=== PATIENT | male | born 1990 | race Caucasian/White ===

== ENCOUNTER 2017-06-12 21:20 | Inpatient (IN) | payer OTHER ==
[~2017-06-12] VITALS: Ht 177.8 cm; Wt 58.1 kg
[2017-06-12 22:00] VITALS: BP 110/66
--- NOTE | 2017-06-12 22:00 | NUR ---
INTAKE ASSESSMENT PATIENT NOTED AMBULATING WITH STEADY GAIT . PATIENT ABLE TO ANSWER QUESTIONS APPROPRIATELY. VS BP- 110/66 P-91 T-98.5 R-18 SpO2 97% IN RA. PA- 5/10 FOR HEADACHE. PATIENT NOTED DOZES OFF AT TIMES. PATIENT STATES HE'S TIRED. PATIENT IS HERE FOR HEROIN IV AND METH IV. PATIENT STATES HE LAST USE HEROIN TODAY 1/2 GRAM AT 2 OR 3 PM AND METH WAS 2 DAYS AGO. NO SEIZURE HISTORY. NO KNOWN ALLERGIES. WILL CONTINUE ADMISSION ON 3RD FLOOR.
--- NOTE | 2017-06-12 22:36 | NUR ---
ADMISSION NOTE PATIENT IS A 26 YEAR OLD MALE WHO PRESENTS TO [facility] FOR SUPERVISED WITHDRAWAL FROM OPIATE/METH DEPENDENCE. PATIENT STATES HE'S HERE "TO GET SOBER AND TO GET HIS LIFE BACK". HEIGHT IS 5'10 AND WEIGHT IS 128 LBS. PATIENT REQUESTED TO BE FULL CODE AND ON REGULAR DIET. BODY CHECK DONE . PATIENT NOTED WITH OPEN SCABS ON RIGHT ARM, BACK AND BOTH FEET. PICTURE TAKEN. LUNGS CLEAR AND ABDOMEN SOFT AND NON DISTENDED. BOWEL SOUNDS ACTIVE ON LOWER QUADRANTS. PATIENT STATES HIS LAST BOWEL MOVEMENT WAS 2 DAYS AGO. NO ABDOMINAL PAIN. PATIENT REPORTS PMH OF APPENDECTOMY, KIDNEY STONES, ANXIETY , DEPRESSION AND OVERDOSE ON HEROIN 3 WEEKS AGO , HE WAS HOSPITALIZED. HE STATES HE DOES NOT TAKE ANY HOME MEDICATION. PATIENT DOES NOT HAVE PCP. PATIENT'S DRUG OF CHOICE ARE: HEROIN IV-STARTED USING AT AGE 18. PATIENT INJECTS 1/2 TO 1 GRAM DAILY SINCE JANUARY 2017. LAST USE WAS 1/2 GRAM ON 06/12/17 METHAMPHETAMINE-STARTED USING AT AGE 18. PATIENT INJECTS 1/2 TO 1 GRAM DAILY SINCE JANUARY 2017. LAST USE WAS 1 GRAM , 2 DAYS AGO 06/10/17. TREATMENT HISTORY FORMERLY [facility], 1928–1983 [facility]- SEPTEMBER 2016- DECEMBER 2016 PATIENT STATES HE WAS IN THE HOSPITAL 3 WEEKS AGO DUE TO OVERDOSE OF HEROIN. HE WAS ALSO [facility] FOR A DAY BEFORE COMING HERE. 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 HIS MOM AND GF IS HIS SUPPORT SYSTEM. PATIENT APPEARS ANXIOUS. COWS 5 AND CIWA 4. PATIENT WAS PLACED ON FALL PRECAUTION. SAFETY MEASURES IN PLACE. CALL LIGHT IN REACH. WILL CONTINUE TO MONITOR.
[2017-06-12] MEDS ORDERED: MAGNESIUM HYDROXIDE 30 ML LIQUID UDC PO PRN (23:00)
[2017-06-12] MEDS ORDERED: ONDANSETRON 4 MG/2 ML VIAL IM PRN (23:00)
[2017-06-12] MEDS ORDERED: HYDROXYZINE PAMOATE 25 MG CAPSULE PO PRN (23:00)
[2017-06-12] MEDS ORDERED: MIRALAX 17 GM POWD.PACK PO PRN (23:00)
[2017-06-12] MEDS ORDERED: MAG HYDROX/AL HYDROX/SIMETH 30 ML LIQUID UDC PO PRN (23:00)
[2017-06-12] MEDS ORDERED: ONDANSETRON ODT 4 MG TAB.RAPDIS SL PRN (23:00)
[2017-06-12] MEDS ORDERED: LOPERAMIDE HCL 2 MG CAPSULE PO PRN ×2 (23:00)
[2017-06-12] MEDS ORDERED: ACETAMINOPHEN 325 MG TABLET PO PRN (23:00)
[2017-06-12] MEDS ORDERED: CLONIDINE HCL 0.1 MG TABLET PO PRN (23:00)
[2017-06-12] MEDS ORDERED: BUPRENORPHINE HCL 2 MG TAB.SUBL SL PRN (23:00)
[2017-06-12] MEDS ORDERED: LORAZEPAM 1 MG TABLET PO PRN (23:00)
[2017-06-12] MEDS ORDERED: IBUPROFEN 600 MG TABLET PO PRN (23:00)
[2017-06-12] MEDS: diphenhydrAMINE 50 MG CAPSULE PO PRN (23:13)
--- NOTE | 2017-06-12 23:13 | NUR ---
PRN BENADRYL AND TYLENOL ADMINISTRATION PATIENT C/O HEADACHE 02/03 AND REQUESTS FOR SLEEP AID. PRN BENADRYL AND TYLENOL GIVEN. WILL MONITOR FOR EFFECTIVENESS
[2017-06-12] MEDS ORDERED: ACETAMINOPHEN 325 MG TABLET ONE (23:25)
[2017-06-12] MEDS ORDERED: diphenhydrAMINE 50 MG CAPSULE ONE (23:25)
[2017-06-12 23:48] LABS: *AMPHETAMINE, URINE NEGATIVE (NEGATIVE); *BARBITURATE, URINE NEGATIVE (NEGATIVE); *CANNABINOID, URINE NEGATIVE (NEGATIVE); *COCCAINE, URINE NEGATIVE (NEGATIVE); *OPIATE, URINE POSITIVE (NEGATIVE); *PHENCYCLIDINE SCREEN,URINE NEGATIVE (NEGATIVE)
[2017-06-13] VITALS: BP 90/50
--- NOTE | 2017-06-13 00:13 | NUR ---
PRN BENADRYL AND TYLENOL RE-ASSESSMENT PATIENT IN BED WITH HIS EYE CLOSED. NO FACIAL GRIMACING. RESPIRATION EVEN AND UNLABORED. SAFETY MEASURES IN PLACE. CALL LIGHT IN REACH. WILL CONTINUE TO MONITOR
[2017-06-13 04:00] VITALS: BP 98/59
[2017-06-13 06:53] LABS: ALANINE AMINOTRANSFERASE 20 U/L (16-63); ALKALINE PHOSPHATASE 68 U/L (50-136); ASPARTATE AMINOTRANSFERASE 26 U/L (15-37); BILIRUBIN,TOTAL 1.1 mg/dL (0.2-1.0); CARBON DIOXIDE 31 mmol/L (21-32); CHLORIDE 102 mmol/L (98-107); CREATININE 0.9 mg/dL (0.6-1.3); ETHANOL < 3 MG/DL (0-0); GLUCOSE 80 mg/dL (74-106); MAGNESIUM 1.9 mg/dL (1.8-2.4); POTASSIUM 4.3 mmol/L (3.5-5.1); TOTAL PROTEIN, SERUM 7.5 g/dL (6.4-8.2); UREA NITROGEN, BLOOD 12 mg/dL (7-18)
[2017-06-13 07:05] LABS: BASOPHILS % (AUTO) 0.6 % (0.0-2.0); EOSINOPHILS # (AUTO) 0.3 K/uL (0.0-0.7); HEMATOCRIT 41.6 % (40-50); HEMOGLOBIN 13.8 G/DL (14.0-18.0); LYMPHOCYTES # (AUTO) 1.4 K/UL (0.8-4.8); MEAN CORPUSCULAR HEMOGLOBIN 30.3 UUG (27.0-31.0); MEAN CORPUSCULAR HGB CONC 33 g/dL (32.0-37.0); MEAN CORPUSCULAR VOLUME 91.3 FL (82.0-92.0); MONOCYTES # (AUTO) 0.4 K/UL (0.1-1.30); MONOCYTES % (AUTO) 8.4 % (0.0-11.0); NEUTROPHILS # (AUTO) 2.3 K/UL (1.8-8.9); PLATELET COUNT (AUTO) 151 K/UL (150-450); RED BLOOD CELL COUNT(AUTO) 4.55 MIL/UL (4.7-6.1); WHITE BLOOD COUNT (AUTO) 4.4 K/UL (4.0-11.2)
--- NOTE | 2017-06-13 07:05 | NUR ---
Start of Shift Report from night nurse: pt is a 26 y/o male newly admitted here last night for Opiate dependence r/t Heroin 0.5-1g daily & methamphetamine 0.5-1g daily both IV since 01/2017; PRN Subutex ordered and no taper started at this time. Pt is a full code, regular diet, NKA, fall precautions ordered. Hhx: anxiety, depression, renal stones, appendectomy and OD on heroin, pt in hospital 3 weeks so MRSA done and in processes. V/S stable. Skin not intact with multiple scabs on back bilateral feet and right arm with pictures taken in the chart. PRN Benadryl and Tylenol. COWS 2 CIWA 2. Pt is asleep in room. Will cont. to monitor the pt.
--- NOTE | 2017-06-13 07:20 | NUR ---
END OF SHIFT NOTE PATIENT HAD UNEVENTFUL NIGHT. PATIENT IS A 26 YEAR OLD MALE ADMITTED FOR OPIATE AND METH DEPENDENCE.PATIENT WAS GIVEN PRN BENADRYL AND TYLENOL. PATIENT COMPLIANT WITH MEDICATION AND TREATMENT PLAN. ON FALL PRECAUTION. SAFETY MEASURES IN PLACE. CALL LIGHT IN REACH. WILL CONTINUE TO MONITOR . PATIENT SLEPT 6 HOURS. FLUID INTAKE 1,000 ML. VOIDED X 1. NO BM. LAST COWS 2 AND CIWA 2.
[2017-06-13 08:00] VITALS: BP 93/62
[2017-06-13] MEDS ORDERED: TUBERCULIN,PURIF.PROT.DERIV. 5 TU/0.1 ML TEST ID ONE (09:00)
[2017-06-13] MEDS ORDERED: BUPRENORPHINE HCL 2 MG TAB.SUBL SL SCH (09:00)
[2017-06-13 12:00] VITALS: BP 117/69
[2017-06-13] MEDS: MULTIVITAMINS,THERAPEUTIC TABLET PO SCH (13:43)
[2017-06-13] MEDS: BUPRENORPHINE HCL 2 MG TAB.SUBL SL SCH ×3 (13:44→20:39)
[2017-06-13] MEDS: METHOCARBAMOL 750 MG TABLET PO PRN (13:45)
--- NOTE | 2017-06-13 13:45 | NUR ---
PRN Medication Administration Pt is in room with anxiety and muscle tension with discomfort generalized; PRN Robaxin 750mg and Vistaril 25mg given as ordered. Will reassess in 1H.
--- NOTE | 2017-06-13 14:45 | NUR ---
Reassessment Pt is in room taking a nap, no non-verbal s/sx of anxiety or muscle tension noted. Will cont. to monitor the pt.
[2017-06-13 16:00] VITALS: BP 101/62
--- NOTE | 2017-06-13 19:19 | NUR ---
Start of Shift Report from night nurse: pt is a 26 y/o male newly admitted here last night for Opiate dependence r/t Heroin 0.5-1g daily & methamphetamine 0.5-1g daily both IV since 01/2017; PRN Subutex ordered and no taper started at this time. Pt is a full code, regular diet, NKA, fall precautions ordered. Hhx: anxiety, depression, renal stones, appendectomy and OD on heroin, pt in hospital 3 weeks so MRSA done and in processes. V/S stable. Skin not intact with multiple scabs on back bilateral feet and right arm with pictures taken in the chart and PPD test done today on Left FA. Pt missed the 0900am dose of Subutex per Dr. Jules. PRN Robaxin 750mg and Vistaril 25mg given today. Pt excused from the group therapy during my shift. No abnormal labs during my shift. Last COWS 10 CIWA 7.
[2017-06-13 20:00] VITALS: BP 97/61
--- NOTE | 2017-06-13 20:00 | NUR ---
START OF SHIFT NOTE RECEIVED REPORT FROM DAY SHIFT NURSE. PATIENT IS A 26 YEAR OLD MALE ADMITTED FOR OPIATE/METH DEPENDENCE. PATIENT WAS PLACED ON 4 DAY SUBUTEX TAPER, STARTED TODAY. NO SEIZURE HISTORY. TB TEST DONE TODAY. PATIENT WAS GIVEN PRN VISTARIL AND ROBAXIN. LAST COWS 10. PATIENT IN HIS ROOM, RESTING. PATIENT REPORTS ANXIETY, SWEATING, CHILLS , ABDOMINAL CRAMPING , STUFFY NOSE, NAUSEATED , VOMITING X 1, SLIGHT TREMORS AND BACK PAIN 6/10. ON FALL/SEIZURE PRECAUTION.SAFETY MEASURES IN PLACE. CALL LIGHT IN REACH. WILL CONTINUE TO MONITOR.
[2017-06-13] MEDS: DICYCLOMINE HCL 20 MG TABLET PO PRN (20:38)
--- NOTE | 2017-06-13 20:38 | NUR ---
PRN BENTYL,MOTRIN AND ZOFRAN ADMINISTRATION PATIENT C/O ABDOMINAL CRAMPING, NAUSEA/VOMITING X 1 AND BACK PAIN 6/10. WILL MONITOR FOR EFFECTIVENESS
--- NOTE | 2017-06-13 21:38 | NUR ---
NM AMEENA WILSON AND GRISEL RE-ASSESSMENT PATIENT STATES HE FEELS MUCH BETTER. EMESIS AND NAUSEA CEASED. NO PAIN . WILL CONTINUE TO MONITOR.
[2017-06-14] VITALS: BP 93/52
[2017-06-14 04:00] VITALS: BP 90/56
--- NOTE | 2017-06-14 07:09 | NUR ---
END OF SHIFT NOTE PATIENT IS A 26 YEAR OLD MALE ADMITTED FOR OPIATE/METH DEPENDENCE. PATIENT WAS PLACED ON 4 DAY SUBUTEX TAPER, TOLERATED WELL. NO ADVERSE REACTION. PATIENT IN HIS ROOM MOST OF THE SHIFT. GOES OUT TO SMOKE AND GET SNACKS. PATIENT REPORTED ANXIETY, SWEATING, CHILLS , ABDOMINAL CRAMPING , STUFFY NOSE NAUSEATED , VOMITING X 1, SLIGHT TREMORS AND BACK PAIN 6/10. PATIENT WAS GIVEN PRN BENTYL, MOTRIN AND ZOFRAN AT 2037. PATIENT REMAIN FREE OF INJURY. ON FALL/SEIZURE PRECAUTION.SAFETY MEASURES IN PLACE. CALL LIGHT IN REACH. WILL CONTINUE TO MONITOR. SLEPT 7 HOURS. FLUID INTAKE 1,180 ML. VOIDED X 3 . NO BM. LAST COWS 2.
[2017-06-14 08:00] VITALS: BP 92/66
--- NOTE | 2017-06-14 08:10 | NUR ---
START O9F SHIFT: RECEIVED PT A/O X 4 LAYING IN BED. HE PRESENTS WITH ANXIOUS MOOD AND RESTRICTED AFFECT. HE STATES HIS APPETITE IS POOR AND C/O STOMACH CRAMPS,BODY ACHES,ANXIETY ,CHILLS ,SWEATS AND IRRITABILITY. COWS 8. SUBUTEX TAPER IN PROGRESS TO MANAGE S/S OF W/D. PRN BENTYL GIVEN TO MANAGE STOMACH CRAMPS. ENCOURAGED HIM TO INCREASE FLUID INTAKE TO PROMOTE WELLNESS. WILL CONTINUE TO MONITOR AND MANAGE S/S OF W/D.
[2017-06-14] MEDS: MULTIVITAMINS,THERAPEUTIC TABLET PO SCH (08:47)
[2017-06-14] MEDS: DICYCLOMINE HCL 20 MG TABLET PO PRN (08:47)
[2017-06-14] MEDS ORDERED: BUPRENORPHINE HCL 2 MG TAB.SUBL SL SCH ×3 (09:00→13:00)
[2017-06-14 12:00] VITALS: BP 115/61
[2017-06-14] MEDS: GABAPENTIN 300 MG CAPSULE PO SCH ×2 (14:10→20:41)
[2017-06-14] MEDS: BACLOFEN 10 MG TABLET PO SCH ×2 (14:10→20:42)
[2017-06-14] MEDS: CLONIDINE HCL 0.1 MG TABLET PO SCH ×2 (14:11→20:43)
[2017-06-14] MEDS: DICYCLOMINE HCL 20 MG TABLET PO SCH ×2 (14:12→20:42)
[2017-06-14] MEDS: BUPRENORPHINE HCL 2 MG TAB.SUBL SL SCH ×2 (14:12→20:43)
[2017-06-14 16:00] VITALS: BP 90/62
--- NOTE | 2017-06-14 18:47 | NUR ---
END OF SHIFT: PT CONTINUES ON SUBUTEX TAPER. HE C/O BODY ACHES,SWEATS ANXIETY AND CHILLS TODAY. LAST COWS 5. HE SHOWERED TODAY BUT DID NOT FEEL WELL ENOUGH TO ATTEND GROUPS. HE WAS COM[PLIANT WITH INCREASED FLUIDS. WILL PASS SHIFT REPORT TO ONCOMING NIGHT NURSE.
[2017-06-14 20:00] VITALS: BP 115/67
--- NOTE | 2017-06-14 20:00 | NUR ---
START OF SHIFT NOTE RECEIVED REPORT FROM DAY SHIFT NURSE. CONTINUE ON 4 DAY SUBUTEX TAPER FOR OPIATE DEPENDENCE, TOLERATED WELL. NO ADVERSE REACTION. PATIENT HAS NO SEIZURE HISTORY. PATIENT DID NOT REQUIRE ANY PRN MEDICATION. LAST COWS 5. PATIENT IN THE ROOM, WATCHING TV AT THIS TIME. PATIENT REPORTS ANXIETY, SWEATING , NO N/V , YAWNING, TREMORS AND BACK PAIN 5/10. PATIENT DID NOT ATTEND GROUPS BUT WILL TRY TOMORROW. ON FALL/SEIZURE PRECAUTION. SAFETY MEASURES IN PLACE. CALL LIGHT IN REACH. WILL CONTINUE TO MONITOR.
[2017-06-14] MEDS: METHOCARBAMOL 750 MG TABLET PO PRN (20:43)
--- NOTE | 2017-06-14 20:43 | NUR ---
PRN ROBAXIN ADMINISTRATION PATIENT C/O BACK PAIN 02/03 . PRN ROBAXIN GIVEN. WILL MONITOR FOR EFFECTIVENESS
--- NOTE | 2017-06-14 21:43 | NUR ---
PRN ROBAXIN RE-ASSESSMENT PATIENT STATES ROBAXIN HELPFUL. NO PAIN AT THIS TIME. WILL CONTINUE TO MONITOR
--- NOTE | 2017-06-15 | NUR ---
COWS/VS PATIENT REFUSED VS. COWS UNABLE TO ASSESS. RESPIRATION EVEN AND UNLABORED. RR 14. SAFETY MEASURES IN PLACE. CALL LIGHT IN REACH. WILL CONTINUE TO MONITOR.
--- NOTE | 2017-06-15 04:00 | NUR ---
COWS/VS PATIENT REFUSED VS. COWS UNABLE TO ASSESS. RESPIRATION EVEN AND UNLABORED. RR 15. SAFETY MEASURES IN PLACE. CALL LIGHT IN REACH. WILL CONTINUE TO MONITOR.
[2017-06-15 04:06] LABS: HEPATITIS B SURFACE AG Negative (Negative)
--- NOTE | 2017-06-15 06:59 | NUR ---
END OF SHIFT NOTE PATIENT CONTINUE ON 4 DAY SUBUTEX TAPER FOR OPIATE DEPENDENCE, TOLERATED WELL. NO ADVERSE REACTION. PATIENT HAS NO SEIZURE HISTORY.. PATIENT REPORTED ANXIETY, SWEATING , NO N/V , YAWNING, TREMORS AND BACK PAIN 5/10 BEGINNING OF SHIFT. PRN ROBAXIN GIVEN. PATIENT COMPLIANT WITH MEDICATION , PATIENT DID NOT ATTEND GROUPS BUT WILL TRY TODAY. ON FALL/SEIZURE PRECAUTION. SAFETY MEASURES IN PLACE. CALL LIGHT IN REACH. WILL CONTINUE TO MONITOR. SLEPT 7 HOURS. FLUID INTAKE 1,092 ML. VOIDED X 3.NO BM. LAST COWS 6 .
--- NOTE | 2017-06-15 07:20 | NUR ---
Start of Shift Merchandiser Seasonal received report on 26 year old male admitted on 06/12/17 for Heroin and Methamphetamine detoxification. Pt reports NKA, full code and regular diet. Reports a PMH of anxiety, depression, appendectomy and a previous over-dose on Heroin. Pt currently on a 4 day Subutex taper, tolerating well. Last recorded COWS of 6 at 1999, per report. Merchandiser Seasonal encounters pt resting in bed with eyes closed. Respirations even and unlabored with rise and fall of chest noted. Bed in low position with wheels locked, side rails up x2 and call light within reach. Will continue to monitor, support and encourage according to plan of care.
[2017-06-15 08:10] VITALS: BP 111/52
[2017-06-15] MEDS: CLONIDINE HCL 0.1 MG TABLET PO SCH ×3 (08:52→21:18)
[2017-06-15] MEDS: DICYCLOMINE HCL 20 MG TABLET PO SCH ×3 (08:52→21:18)
[2017-06-15] MEDS: BUPRENORPHINE HCL 2 MG TAB.SUBL SL SCH ×3 (08:53→21:18)
[2017-06-15] MEDS: MULTIVITAMINS,THERAPEUTIC TABLET PO SCH (08:53)
[2017-06-15] MEDS: BACLOFEN 10 MG TABLET PO SCH ×3 (08:53→21:18)
[2017-06-15] MEDS: GABAPENTIN 300 MG CAPSULE PO SCH ×3 (08:53→21:18)
[2017-06-15] MEDS ORDERED: BUPRENORPHINE HCL 2 MG TAB.SUBL SL SCH ×2 (09:00→15:00)
--- NOTE | 2017-06-15 10:30 | NUR ---
Endorse Care Surveillance System Monitor endorsed care to ZHANE Shea
--- NOTE | 2017-06-15 10:30 | NUR ---
Endorsement received from Chris PHELAN
[2017-06-15 13:00] VITALS: BP 102/63
[2017-06-15 16:00] VITALS: BP 100/58
--- NOTE | 2017-06-15 19:09 | NUR ---
End of Shift Endorsement received from nightshift nurse. Pt is a 26 y/o male admitted for heroin and meth dependence. Pt has been placed on a 4 day Subutex taper. Pt is tolerating the taper and moderately withdrawing AEB COWS 5, CIWA 4. Pt did not receive any PRN Medications. PT has been educated on S/S of withdrawals and S/E of medications. Pt was educated on diet regimen and encouraged to drink more fluids. Pt participated in groups and activities. Intake: 2340ml, Void x3, BM x1. VS WNL. Full Code. PT is alert and oriented x4. Pt is in STABLE condition at this time. Remains compliant with medication and diet regimen. All needs have been met, All safety measures in place per hospital policy. Bed in lowest position, side rails up x2, call-light within reach. Will continue to monitor
--- NOTE | 2017-06-15 19:10 | NUR ---
Start of shift note Received report from day shift nurse. Pt is a 26 yo male, A+Ox4, presenting to [facility] for Opiate/Meth dependence. Pt has NKA, is on Full Code status, and on Regular diet. Pt has HX of Anxiety, Depression, Kidney stones, Appendectomy, and Overdose. Pt is on Fall precautions. Pt is on 4 day Subutex taper, tolerated well. No s/s of distress noted at this time. Respirations even and unlabored. Will continue to monitor.
[2017-06-15] MEDS ORDERED: IBUPROFEN 600 MG TABLET PO PRN (19:45)
[2017-06-15 20:41] VITALS: BP 105/59
[2017-06-15] MEDS: FAMOTIDINE 20 MG TABLET PO SCH (21:18)
[2017-06-16 00:18] VITALS: BP 128/65
[2017-06-16 04:15] VITALS: BP 124/63
--- NOTE | 2017-06-16 06:45 | NUR ---
End of shift note Pt is a 26 yo male, A+Ox4, presenting to [facility] for Opiate/Meth dependence. Pt has NKA, is on Full Code status, and on Regular diet. Pt has HX of Anxiety, Depression, Kidney stones, Appendectomy, and Overdose. Pt is on Fall precautions. Pt is on 4 day Subutex taper, tolerated well. Pt slept for a total of 8 HRS. Last COWS: 2 @0400. No s/s of distress noted at this time. Respirations even and unlabored. Will endorse to day shift nurse.
--- NOTE | 2017-06-16 07:05 | NUR ---
Start of Shift Endorsement received from nightshift nurse. Pt is a 26 y/o male admitted for heroin and meth dependence. Pt has been placed on a 4 day Subutex taper. Pt is tolerating the taper and mildly withdrawing AEB COWS 2. Pt did not receive any PRN Medications. Pt is scheduled to complete tapers today. Pt reports sleeping 8 hours. VS WNL. Full Code. PT is alert and oriented x4. Pt is in STABLE condition at this time. Remains compliant with medication and diet regimen. All needs have been met, All safety measures in place per hospital policy. Bed in lowest position, side rails up x2, call-light within reach. Will continue to monitor
[2017-06-16 08:00] VITALS: BP 102/65
[2017-06-16] MEDS: GABAPENTIN 300 MG CAPSULE PO SCH ×3 (08:57→21:14)
[2017-06-16] MEDS: MULTIVITAMINS,THERAPEUTIC TABLET PO SCH (08:57)
[2017-06-16] MEDS: FAMOTIDINE 20 MG TABLET PO SCH ×2 (08:57→21:14)
[2017-06-16] MEDS: BACLOFEN 10 MG TABLET PO SCH ×3 (08:57→21:14)
[2017-06-16] MEDS: DICYCLOMINE HCL 20 MG TABLET PO SCH ×3 (08:57→21:14)
[2017-06-16] MEDS: CLONIDINE HCL 0.1 MG TABLET PO SCH ×3 (08:58→21:14)
[2017-06-16] MEDS ORDERED: BUPRENORPHINE HCL 2 MG TAB.SUBL SL SCH ×2 (09:00)
[2017-06-16 12:00] VITALS: BP 98/61
[2017-06-16 16:00] VITALS: BP 110/61
[2017-06-16] MEDS ORDERED: FAMO20TA8 PO (16:49)
[2017-06-16] MEDS ORDERED: GABA-534 PO (16:49)
[2017-06-16] MEDS ORDERED: DICY20TA28 PO (16:49)
[2017-06-16] MEDS ORDERED: HYDR-3895 PO (16:49)
[2017-06-16] MEDS ORDERED: BACL10TA PO (16:49)
[2017-06-16] MEDS ORDERED: IBUP-1955 PO (16:49)
[2017-06-16] MEDS ORDERED: DIPH50CA37 PO (16:49)
[2017-06-16] MEDS ORDERED: CLON0.1T14 PO (16:49)
--- NOTE | 2017-06-16 18:58 | NUR ---
End of Shift Endorsement given to nightshift nurse. Pt is a 26 y/o male admitted for heroin and meth dependence. Pt has been placed on a 4 day Subutex taper. Pt is tolerating the taper and moderately withdrawing AEB COWS 3. PT has completed the detox and has been scheduled to be discharged on 06/17/17. PT has received discharge education and all discharge documentation has been completed. Pt did not receive any PRN Medications. Reinforced education on S/S of withdrawals and S/E of medications. Pt was educated on diet regimen and encouraged to drink more fluids. Pt participated in groups and activities. Intake: 2340ml, Void x3, BM x1. VS WNL. Full Code. PT is alert and oriented x4. Pt is in STABLE condition at this time. Remains compliant with medication and diet regimen. All needs have been met, All safety measures in place per hospital policy. Bed in lowest position, side rails up x2, call-light within reach. Will continue to monitor
[2017-06-16 20:00] VITALS: BP 120/70
--- NOTE | 2017-06-16 20:00 | NUR ---
Start of Shift Note: Report received from day shift nurse. Pt is a 26M admitted on 06/12/17 for medically-supervised withdrawal from opiates and amphetamines. Pt reports using 0.5-1g IV heroin and 0.5-1g IV methamphetamine salts daily since January 2017. Pt has completed a 4-day Subutex taper and is to discharge tomorrow. Pt received with last COWS=2, and no PRN medications were given during day shift. Pt is on a regular diet. Pt reports NKA. PMHx: anxiety, depression, kidney stones, appendectomy, and overdose. Pt received in room, and reports anxiety and stomach cramps. Pt verbalizes readiness for discharge, and has been compliant with plan of care. Bed is in low position and locked, side rails up x2, call light within reach. Will continue to monitor.
[2017-06-16] MEDS: diphenhydrAMINE 50 MG CAPSULE PO PRN (21:14)
--- NOTE | 2017-06-16 21:14 | NUR ---
PRN Benadryl: Patient complains of inability to sleep. Administered PRN Benadryl as ordered. Will reassess at end of shift.
--- NOTE | 2017-06-17 | NUR ---
V/S Refused, COWS Deferred: Patient refuses 00:00 V/S. Patient educated on risks and benefits but still refused, stating "I want to sleep, I'm discharging tomorrow." COWS is deferred for sleep. All safety precautions are in place. Will continue to monitor. Addendum: 06/17/17 at 0204 by TESSA SHELLEY RN Amended: Links added.
--- NOTE | 2017-06-17 04:00 | NUR ---
Vitals Refused, COWS Deferred: Patient refuses 04:00 vital signs assessment. Patient educated on risks and benefits but still refused. COWS is deferred for sleep. All safety precautions are in place. Will continue to monitor. Addendum: 06/17/17 at 0410 by TESSA SHELLEY RN Amended: Links added.
--- NOTE | 2017-06-17 07:21 | NUR ---
End of Shift Note: Pt is a 26M admitted to [facility] on 06/12/17 for medically-supervised withdrawal from opiates and amphetamines. Pt reported a PMHx of anxiety, depression, kidney stones, appendectomy, and drug overdose. Pt is on a regular diet, reports NKA, and is full code status. Pt reported using 0.5-1g IV heroin and 0.5-1g IV methamphetamine salts daily for 16 months. Pt has completed a 4-day Subutex taper and is to discharge today. Scheduled medication regime effectively managed s/s of withdrawal this shift. Last COWS=2 at 20:00. V/S stable throughout shift. Total fluid intake this shift: 2410 ml; output: urine x 4 and BM x 1. PRN Benadryl was given for insomnia, which was effective and slept 7 hours this shift. Pt is currently in bed, all needs have been attended and met. Pt endorsed to day shift nurse.
[2017-06-17 08:00] VITALS: BP 99/64
[2017-06-17] MEDS: DICYCLOMINE HCL 20 MG TABLET PO SCH (08:36)
[2017-06-17] MEDS: GABAPENTIN 300 MG CAPSULE PO SCH (08:36)
[2017-06-17] MEDS: FAMOTIDINE 20 MG TABLET PO SCH (08:36)
[2017-06-17] MEDS: MULTIVITAMINS,THERAPEUTIC TABLET PO SCH (08:36)
[2017-06-17] MEDS: BACLOFEN 10 MG TABLET PO SCH (08:36)
[2017-06-17 08:37] VITALS: BP 99/64
[2017-06-17] MEDS: CLONIDINE HCL 0.1 MG TABLET PO SCH (08:37)
[2017-06-17] MEDS ORDERED: BUPRENORPHINE HCL 2 MG TAB.SUBL SL SCH (09:00)
--- NOTE | 2017-06-17 09:44 | NUR ---
START OF SHIFT: RECEIVED PT A/O X 4 HE PRESENTS WITH BRIGHTER MOOD AND RESTRICTED AFFECT. HE REPORTS MILD ANXIETY ABOUT DISCHARGE THIS AM BUT EXPRESSES ENTHUSIASM TOWARD RECOVERY PROCESS. SUBUTEX TAPER COMPLETED. COWS 1 WILL CONTINUE TO MONITOR AND CONTINUE WITH DISCHARGE PROCESS. Addendum: 06/17/17 at 0948 by MUSA TINAJERO RN START OF SHIFT @0800
--- NOTE | 2017-06-17 09:55 | NUR ---
DISCHARGE: PT IS A/O X4. HE DENIES S/I AND H/I. HE STATES HE IS MOTIVATED TO STAY CLEAN AND FEELS ENTHUSIASTIC. BELONGINGS RETURNED. EDUCATED PT ON DISCHARGE INSTRUCTIONS AND MEDICATIONS. VENTILATION WORKER ESCORTED PT TO [facility] WHERE HE WAS TRANSPORTED BY [facility] AT 0930.
== END 2017-06-17 09:30 | disposition other institution (70) | DRG 895 ==
LOC: SRC 21:49
PROVIDERS: ADMIT Internal Medicine; ATTEND Internal Medicine
PROC: HZ2ZZZZ Detoxification Services for Substance Abuse Treatment (ICD-10-PCS; principal; 2017-06-12)
PROC: HZ41ZZZ Group Counseling for Substance Abuse Treatment, Behavioral (ICD-10-PCS; 2017-06-15)
DX: F11.23 Opioid dependence with withdrawal (principal); E80.6 Other disorders of bilirubin metabolism; D64.9 Anemia, unspecified; F41.9 Anxiety disorder, unspecified; F17.210 Nicotine dependence, cigarettes, uncomplicated; Z91.89 Other specified personal risk factors, not elsewhere classified; Z59.0 Homelessness; Z87.442 Personal history of urinary calculi; Z81.1 Family history of alcohol abuse and dependence; Z81.8 Family history of other mental and behavioral disorders; F15.23 Other stimulant dependence with withdrawal
CPT/HCPCS: 36415; 70030-TC; 80307; 80361; 83735; 85025; 86592; 86705; 86803; 87340; 87806; G0480; Q0162; Q0163

== ENCOUNTER 2017-12-07 11:56 | Inpatient (IN) | payer OTHER ==
[~2017-12-07] VITALS: Ht 177.8 cm; Wt 54.4 kg
[~2017-12-07 11:56] MED LIST: BACL10TA PO; CLON0.1T14 PO; DICY20TA28 PO; DIPH50CA37 PO; FAMO20TA8 PO; GABA-534 PO; HYDR-3895 PO; IBUP-1955 PO
[2017-12-07] MEDS ORDERED: ONDANSETRON ODT 4 MG TAB.RAPDIS SL PRN (14:30)
[2017-12-07] MEDS ORDERED: MIRALAX 17 GM POWD.PACK PO PRN (14:30)
[2017-12-07] MEDS ORDERED: DIAZEPAM 5 MG TABLET PO PRN (14:30)
[2017-12-07] MEDS ORDERED: MAG HYDROX/AL HYDROX/SIMETH 30 ML LIQUID UDC PO PRN (14:30)
[2017-12-07] MEDS ORDERED: MAGNESIUM HYDROXIDE 30 ML LIQUID UDC PO PRN (14:30)
[2017-12-07] MEDS ORDERED: diphenhydrAMINE 50 MG CAPSULE PO PRN (14:30)
[2017-12-07] MEDS ORDERED: DIAZEPAM 10 MG TABLET PO PRN ×2 (14:30)
[2017-12-07] MEDS ORDERED: CLONIDINE HCL 0.1 MG TABLET PO PRN (14:30)
[2017-12-07] MEDS ORDERED: ONDANSETRON 4 MG/2 ML VIAL IM PRN (14:30)
[2017-12-07] MEDS ORDERED: LORAZEPAM 2 MG/1 ML VIAL IM PRN (14:30)
[2017-12-07] MEDS ORDERED: ACETAMINOPHEN 325 MG TABLET PO PRN (14:30)
[2017-12-07] MEDS ORDERED: DICYCLOMINE HCL 20 MG TABLET PO PRN (14:30)
[2017-12-07] MEDS ORDERED: LOPERAMIDE HCL 2 MG CAPSULE PO PRN ×2 (14:30)
--- NOTE | 2017-12-07 14:41 | NUR ---
Intake Assessment; Patient is AOx4, appears anxious, worried, tremors to touch with disheveled appearance. Patient denies any allergies or history of seizures. Patient's admitting vital signs are as follows; BP 105/58, HR 98, SPo2 98%, respirations 18, Temperature 98.2, denies pain at this time. Educated patient regarding unit protocols and policies, patient verbalized understanding. Will continue with further assessment when patient is up on the unit.
--- NOTE | 2017-12-07 15:57 | NUR ---
Admission note; Patient is a 27 year old male, AOX4 , presented to [facility] to detoxify from Benzodiazepine/Methamphetamine withdrawals. Patient is from [place], [place] and arrived at intake at approximately 1400. Patient's admitting vital signs are as follows; BP 105/58, HR 98, Temperature 98.2, Respirations 18, SPo2 98%, denies pain at this time. Patient denies allergies and history of seizures. Patient was a previous patient of [facility] for Heroin withdrawals from 06/12/17-06/17/17 and was transferred to [facility] for treatment. Patient was sober for approximately 30 days but relapsed after due to of his brother. Patient had difficulty coping to stress and his emotions which lead him to using Methamphetamine/ Benzodiazepine for approximately 5 months. Substance use history discussed. Patient stated that he has been using Methamphetamine salts since he was 17 years old. At this rate he has been using 1 GRAM daily via IV route for 5 months , last used 12/07/17 at 0300. Patient reported that he started using Benzodiazepine (Xanax) when he was 17 years old. At this rate he has been using 4-6 bars of Xanax per day for 5 months, 1 bar is equivalent to 2mg. Last used on the day of admission 12/07/17 at 1000. Patient Remained sober from using Heroin and is on remission. Medical use history discussed. Patient reported history of appendectomy, kidney stones. Patient's immediate family also have a history of Substance use including his parents and siblings. Patient stated that he is motivated to remain sober. Due to the of his brother, he realized that he needs to remain clean in order to live a happy and healthy life. Patient stated that he wants to get in into a 6months program to help with maintaining sobriety. Patient is admitted under the care of Dr. Jules to room 306. Skin check done, old healing scabs noted on patient's hands and face, sites are intact. Educated patient regarding unit protocols and policies,patient verbalized understanding. Urine sample for urine drug screen collected and MRSA swab collected and was sent to LAB. Oriented patient to unit by WOOD STOCK BLANK HANDLER. All safety measures secured. Will continue to monitor patient.
[2017-12-07 15:58] LABS: *AMPHETAMINE, URINE POSITIVE (NEGATIVE); *BARBITURATE, URINE NEGATIVE (NEGATIVE); *CANNABINOID, URINE POSITIVE (NEGATIVE); *COCCAINE, URINE NEGATIVE (NEGATIVE); *OPIATE, URINE NEGATIVE (NEGATIVE); *PHENCYCLIDINE SCREEN,URINE NEGATIVE (NEGATIVE)
[2017-12-07 16:00] VITALS: BP 108/68
[2017-12-07] MEDS: PHENOBARBITAL 60 MG TABLET PO SCH ×2 (16:55→22:09)
[2017-12-07 17:42] LABS: BASOPHILS % (AUTO) 0.5 % (0.0-2.0); EOSINOPHILS # (AUTO) 0.1 K/uL (0.0-0.7); EOSINOPHILS % (AUTO) 2.6 % (0.0-7.0); HEMATOCRIT 40.4 % (36.7-47.1); HEMOGLOBIN 13.6 g/dL (12.5-16.3); LYMPHOCYTES # (AUTO) 1.4 K/uL (20.0-40.0); LYMPHOCYTES % (AUTO) 35.5 % (20.5-51.5); MEAN CORPUSCULAR HEMOGLOBIN 30.9 uug (23.8-33.4); MEAN CORPUSCULAR HGB CONC 34 g/dL (32.5-36.3); MEAN CORPUSCULAR VOLUME 91.5 fL (73.0-96.2); MONOCYTES # (AUTO) 0.4 K/uL (2.0-10.0); MONOCYTES % (AUTO) 9.6 % (0.0-11.0); NEUTROPHILS # (AUTO) 2.1 K/uL (1.8-8.9); NEUTROPHILS % (AUTO) 51.8 % (38.5-71.5); PLATELET COUNT (AUTO) 160 K/uL (152-348); RED BLOOD CELL COUNT(AUTO) 4.41 MIL/uL (4.06-5.63)
[2017-12-07 17:47] LABS: ETHANOL < 3 MG/DL (0-0)
[2017-12-07 17:49] LABS: ALANINE AMINOTRANSFERASE 20 U/L (16-63); ALKALINE PHOSPHATASE 59 U/L (50-136); ASPARTATE AMINOTRANSFERASE 20 U/L (15-37); BILIRUBIN,TOTAL 1.3 mg/dL (0.2-1.0); CARBON DIOXIDE 29 mmol/L (21-32); CHLORIDE 105 mmol/L (98-107); CREATININE 0.9 mg/dL (0.6-1.3); GLUCOSE 100 mg/dL (74-106); MAGNESIUM 1.9 mg/dL (1.8-2.4); POTASSIUM 3.8 mmol/L (3.5-5.1); TOTAL PROTEIN, SERUM 6.8 g/dL (6.4-8.2); UREA NITROGEN, BLOOD 11 mg/dL (7-18)
[2017-12-07 17:59] LABS: THYROID STIMULATING HORMONE 0.543 mIU/mL (0.358-3.740)
--- NOTE | 2017-12-07 18:33 | NUR ---
End of shift note; Patient is AOX4, complaining of chills, anxiety, tremors, restless legs, agitation. Patient was seen and evaluated by MD. Patient was started on a Phenobarbital taper to help reduce withdrawal symptoms and prevent Benzodiazepine induced seizures. Educated patient regarding the importance of compliance to treatment and medication regime, patient verbalized understanding. All safety measures secured. Met all needs.
--- NOTE | 2017-12-07 19:00 | NUR ---
Start of Shift Patient Received. Patient is in his room sleeping but easily aroused to verbal stimuli. Breathing even and non labored. Patient was admitted during morning shift for Benzo and Methamphetamines withdrawal. He was started on a modified Phenobarbital taper. No additional PRN medications administered. Last noted CIWA 12. Upon rounds patients room noted to be room appearance noted with food and wrappers on floor and beside table, room also noted to be malodorous. All needs attended to promptly. Will continue plan of care as ordered.
[2017-12-07 20:30] VITALS: BP 103/62
[2017-12-07] MEDS: GABAPENTIN 300 MG CAPSULE PO SCH (22:09)
[2017-12-08 00:33] VITALS: BP 98/57
[2017-12-08 04:15] VITALS: BP 113/62
--- NOTE | 2017-12-08 07:20 | NUR ---
End of Shift Patient is in bed sleeping but easily aroused to verbal stimuli. Breathing even and non labored. Patient was started on a modified Phenobarbital taper. Patient noted to be isolative to room due to increased signs and symptoms of withdrawal. patients room noted with food and wrappers on floor and bedside table, room also noted to be malodorous. When speaking to patient during medication administration patient avoided eye contact, noted to be disheveled with unwashed clothes. Patient noted to be anxious, fidgety, and increased diaphoresis. Last noted CIWA 8. No PRN Medications administered. Patient slept a total of 9 hours. All needs attended to promptly. Will endorse to continue plan of care as ordered.
[2017-12-08 08:00] VITALS: BP 110/70
--- NOTE | 2017-12-08 08:15 | NUR ---
START OF SHIFT: RECEIVED PT A/O X 4. HE PRESENTS DISHEVELED WITH POOR HYGIENE. POOR EYE CONTACT NOTED. HE PRESENTS WITH FLAT AFFECT AND SAD MOOD. HE REPORTS DEPRESSION,HOT AND COLD SWEATS, ANXIETY,BODY ACHES , WEAKNESS , FATIGUE AND RESTLESSNESS. PHENOBARBITAL TAPER IN PROGRESS TO MANAGE S/S OF W/D. CIWA 13. HE REFUSED PPD.ENCOURAGED INCREASED FLUIDS FOR HYDRATION. PROVIDED SUPPLIES AND A CHANGE OF CLOTHING AND ENCOURAGED PT TO SHOWER. PT WAS COMPLIANT. ENCOURAGED REST TODAY. WILL CONTINUE TO MONITOR AND MANAGE S/S OF W/D.
[2017-12-08] MEDS ORDERED: TUBERCULIN,PURIF.PROT.DERIV. 5 TU/0.1 ML TEST ID ONE (09:00)
[2017-12-08] MEDS: GABAPENTIN 300 MG CAPSULE PO SCH ×3 (09:29→20:57)
[2017-12-08] MEDS ORDERED: PHENOBARBITAL 60 MG TABLET PO SCH ×2 (10:00→21:00)
[2017-12-08 12:00] VITALS: BP 110/62
[2017-12-08] MEDS: METHOCARBAMOL 750 MG TABLET PO PRN (12:15)
[2017-12-08] MEDS: PHENOBARBITAL 60 MG TABLET PO SCH ×2 (12:15→17:15)
[2017-12-08] MEDS: IBUPROFEN 600 MG TABLET PO PRN (12:15)
--- NOTE | 2017-12-08 13:15 | NUR ---
PRN VALIUM 10 MG PO PRN GIVEN FOR CIWA 10. PT REPORTS ANXIETY,RESTLESSNESS ,AGITATION AND IRRITABILITY. WILL MONITOR EFFECTIVENESS OF PRN
--- NOTE | 2017-12-08 14:15 | NUR ---
CIWA DEFERRED AFTER PRN ADMINISTRATION PT IS ASLEEP. RESPIRATIONS EVEN AND UNLABORED. BED LOCKED AND LOW. CALL LOUISE IN REACH. WILL CONTINUE TO MONITOR.
[2017-12-08 16:00] VITALS: BP 123/75
--- NOTE | 2017-12-08 16:14 | NUR ---
1500 GABAPENTIN HELD PT IS ASLEEP.CIWA DEFERRED DUE TO SLEEP. WILL CONTINUE TO MONITOR AND OFFER SUPPORT.
--- NOTE | 2017-12-08 18:49 | NUR ---
PT CONTINUES ON PHENO. TAPER TO MANAGE S/S OF W/D. LAST CIWA 9. HE IS DISHEVELED AND PRESENTS WITH FLAT AFFECT AND DEPRESSED MOOD. HE SHOWERED ENCOURAGED AND IS CLEAN. HE C/O ANXIETY,SKIN CRAWLING,RESTLESSNESS,DEPRESSION AND IRRITABILITY TODAY. HE DENIES S/I AND H/I . PRN VALIUM GIVEN AND WAS EFFECTIVE AEB PT FELL ASLEEP .HE SLEPT THROUGH 1500 GABAPENTIN ADMINISTRATION . HE IS COOPERATIVE AND COMPLIANT WITH PLAN OF CARE. [facility].
[2017-12-08 20:00] VITALS: BP 112/68
--- NOTE | 2017-12-08 20:00 | NUR ---
Start of Shift Pt is a 27 year old male admitted for Benzo withdrawal, placed on Phenobarbital taper. At time of assessment, Pt presents in room, in bed, AAOx4, dark circles around eyes, unshaven, appears flushed, upon touch skin is noted with sweat, anxious, restless, chills with pins/needles. Medications due, safety measures in place, will continue to monitor.
[2017-12-09] VITALS: BP 102/53
[2017-12-09 04:00] VITALS: BP 116/61
--- NOTE | 2017-12-09 04:00 | NUR ---
GERALDINE deferred d/t pt sleeping to assess while pt is awake as ordered BP 116/61, pulse 78, resp 16, Spo2 100% RA, temp [address], will continue to monitor
--- NOTE | 2017-12-09 07:00 | NUR ---
End of Shift Pt is a 27 year old male admitted for Benzo withdrawal, placed on Phenobarbital taper. During shift, Pt presented in room, in bed, AAOx4, dark [place] around eyes, unshaven, appears flushed, upon touch skin is noted with sweat, anxious, restless, chills with pins/needles scheduled taper medications administered CIWA 15 decreased to CIWA 10. Pt remains isolative to room, encouraged to participate in activities. Pt slept for 9 hours, intake of 480 ml PO, voids x1 and stool x0. Safety measures in place, Endorsed to day shift nurse.
--- NOTE | 2017-12-09 07:30 | NUR ---
START OF SHIFT Pt sofia a 27 yr old male, admitted on 12/07/17 for Benzo withdrawal and is on a 6 day Phenobarbital taper as ordered. Received report from police shift commander nurse. No PRN's were given during the night. Last CIWA score was 10 at 2200. Pt slept for 9 hrs. Pt is currently in bed sleeping within respirations even and unlabored. Skin is intact, warm and moist to touch. Pt's room is noted with dirty clothes and opened candy wrappers on the floor. Pt is on fall and seizure precautions. Call light is within reach. Will continue to monitor.
[2017-12-09 08:30] VITALS: BP 105/67
[2017-12-09] MEDS: GABAPENTIN 300 MG CAPSULE PO SCH ×3 (08:45→21:11)
[2017-12-09] MEDS: PHENOBARBITAL 60 MG TABLET PO SCH ×3 (08:45→21:11)
[2017-12-09 12:00] VITALS: BP 91/44
[2017-12-09 12:11] LABS: HEPATITIS B SURFACE AG Negative (Negative)
[2017-12-09 16:00] VITALS: BP 110/74
--- NOTE | 2017-12-09 19:05 | NUR ---
Start of Shift Patient Received. Patient is noted in his room awake and watching TV. Encouraged patient to attend group meeting and patient states "maybe tomorrow." Per endorsement, patient continues on a modified phenobarbital taper. Patient is noted to be non-compliant with group meetings and social activities. He is noted with flat affect, appearance noted to be unkept, verbalizing increased anxiety and irritability. Room appears with melted ice cream on bedside tables, food and wrappers on floor and tables. Last noted CIWA 10. No PRN medications administered. All needs attended to promptly. Will continue to monitor.
--- NOTE | 2017-12-09 19:20 | NUR ---
END OF SHIFT Pt is a 27 yr old male, AA&Ox4. Pt was admitted on 12/07/17 for Benzo withdrawal and is on 5 day Phenobarbital taper as ordered. Medication lance well. Pt has been observed with increase drowsiness and remained in bed throughout the day. Pt's appearances is disheveled and is noted with dirty hands and feet. Pt is noted with flat affect. Pt skin is intact, warm and moist to touch. Pt c/o muscle aching and pins and needles on BLE. Pt was encouraged increase fluid intake for hydration. Last CIWA score was 10 at 1600. No PRN's were given during the day. Safety precautions observed Call light is within reach.
[2017-12-09 20:20] VITALS: BP 116/76
[2017-12-10 00:35] VITALS: BP 107/65
[2017-12-10 04:15] VITALS: BP 99/61
--- NOTE | 2017-12-10 07:27 | NUR ---
End of Shift Patient is in bed sleeping. Breathing even and non labored. Patient continues on a modified phenobarbital taper. patient is noted to be non compliant with group meetings and social activities. Patient is noted with flat affect and noted to be disheveled. Patients room is noted to be cluttered, with food and food wrappers on floor and bedside tables. After medication administration encouraged patient to clean room and patient verbalized understanding, assisted patient in changing linens to bed. No PRN Medications administered. Last noted CIWA 13. No PRN medications administered. Patient slept a total of 7 hours. All needs attended to promptly. Will endorse to continue plan of care as ordered.
--- NOTE | 2017-12-10 08:00 | NUR ---
START OF SHIFT: RECEIVED PT A/O X 4. HE PRESENTS DISHEVELED WITH POOR HYGIENE. POOR EYE CONTACT NOTED. HE PRESENTS WITH FLAT AFFECT AND DEPRESSED MOOD. HE REPORTS DEPRESSION, RESTLESSNESS, ANXIETY AND FATIGUE. PHENOBARBITAL TAPER IN PROGRESS TO MANAGE S/S OF W/D. CIWA 7. ENCOURAGED A SHOWER TODAY. ENCOURAGED GROUP ATTENDANCE TO IMPROVE COPING SKILLS AND PREVENT RELAPSE . WILL CONTINUE TO MONITOR AND MANAGE S/S OF W/D.
[2017-12-10 08:01] VITALS: BP 119/75
[2017-12-10] MEDS ORDERED: PHENOBARBITAL 60 MG TABLET PO SCH ×2 (09:00→21:00)
[2017-12-10] MEDS: GABAPENTIN 300 MG CAPSULE PO SCH ×3 (09:41→20:48)
[2017-12-10] MEDS: PHENOBARBITAL 60 MG TABLET PO SCH ×2 (13:20→17:34)
[2017-12-10 13:51] VITALS: BP 110/69
[2017-12-10 16:00] VITALS: BP 120/70
--- NOTE | 2017-12-10 18:27 | NUR ---
END OF SHIFT: PT CONTINUES ON PHENO. TAPER TO MANAGE S/S OF W/D. LAST CIWA 6 HE IS DISHEVELED AND PRESENTS WITH FLAT AFFECT AND DEPRESSED MOOD. HE SHOWERED ENCOURAGED AND IS CLEAN. HE C/O ANXIETY,RESTLESSNESS AND DEPRESSION. HE DENIES S/I AND H/I . HE RESTED ON AND OFF AND ATTENDED SOME GROUPS. HE IS COMPLIANT WITH PLAN OF CARE. [facility]
--- NOTE | 2017-12-10 19:30 | NUR ---
Start of Shift PT is a 27 y/o male admitted 12/07/17 for Xanax, Methamphetamine Withdrawal, more remote/casual hx of Heroin while homeless, positive for Hepatitis C. Pt appearing disheveled and unkempt, Room appears cluttered with food and wrappers strewn about and on floor, encouraged pt to tidy room before bed, hair noted to still be matted. he is noted to be pleasant and cooperative. Discussed why pt did not attend groups during day, pt replied "I'll try tomorrow". Day CIWA reported as 6, Pt scheduled for Neurontin 600mg PO and Phenobarbital 60mg PO. All needs attended to promptly. Will continue plan of care as ordered.
[2017-12-10 20:00] VITALS: BP 125/83
[2017-12-11 00:39] VITALS: BP 103/71
[2017-12-11 04:15] VITALS: BP 97/65
--- NOTE | 2017-12-11 07:25 | NUR ---
End of Shift Patient is noted in bed sleeping. Breathing even non labored. Patient continues on a modified Phenobarbital taper. Pt appearing disheveled, unkempt, and isolative to room. Room appears cluttered with food and wrappers strewn about and on floor, encouraged pt to tidy room before bed, Encouraged patient to clean his room and patient was noted to be passive and disregard suggestion. Will endorse to continue to encourage patient to participate in group meetings and social activities. Last noted CIWA 12. Patient noted to sleep a total of 7 hours. All needs attended to promptly. Will endorse to continue plan of care as ordered.
--- NOTE | 2017-12-11 07:30 | NUR ---
START OF SHIFT Pt is a 27 yr old male, admitted on 12/07/17 for Benzo w/d and is on Phenobarbital taper as ordered. Medication lance well. Received report from senior speech pathologist nurse. No PRN's were given during the night. Pt slept for 7 hrs. Last CIWA score was 12 at 1999. Pt is currently in bed sleeping with respirations even and unlabored. Skin is warm and dry to touch. Pt is on fall and seizure precautions. Bed kept in low positions and locked with side rails up x2. Call light is within reach. Will continue to monitor.
[2017-12-11 08:00] VITALS: BP 97/56
--- NOTE | 2017-12-11 08:00 | NUR ---
CIWA SCORE DEFERRED Pt is currently in bed sleeping with respirations even and unlabored. RR is 18. CIWA is not able to be assessed at this time and will be deferred until pt is awake. Safety precautions observed. Will continue to monitor.
[2017-12-11] MEDS ORDERED: PHENOBARBITAL 60 MG TABLET PO SCH (09:00)
--- NOTE | 2017-12-11 09:00 | NUR ---
TB REFUSED Pt refused TB. Dr. Jules was made aware with NNO.
[2017-12-11] MEDS: METHOCARBAMOL 750 MG TABLET PO PRN (09:35)
[2017-12-11] MEDS: IBUPROFEN 600 MG TABLET PO PRN (09:36)
[2017-12-11] MEDS: GABAPENTIN 300 MG CAPSULE PO SCH ×3 (09:36→20:54)
--- NOTE | 2017-12-11 09:36 | NUR ---
PRN'S GIVEN Pt c/o back pain and headache 04/05. Facial grimacing and rubbing affected area is observed. Pt states, "I feel like shit". Pt states of having pins and needles sensation on BLE and c/o increase anxiety and agitation. Phenobarbital 30mg PO was given as scheduled for s/s of w/d. Pt was also given Robaxin 750mg PO PRN and Motrin 600mg PO PRN for pain mgt. Medication was lance well. Pt was encouraged increase fluid intake. CIWA score was 13. Will continue to monitor.
--- NOTE | 2017-12-11 10:36 | NUR ---
PRN -REASSESSMENT Motrin PRN and Robaxin PRN was effective. Pt continue to c/o back pain but states pain level subsided to 4/10.
[2017-12-11 12:00] VITALS: BP 112/68
[2017-12-11] MEDS ORDERED: BACLOFEN 20 MG TABLET PO PRN (13:00)
[2017-12-11] MEDS ORDERED: DIAZEPAM 10 MG TABLET PO PRN (13:00)
[2017-12-11] MEDS ORDERED: DIAZEPAM 5 MG TABLET PO PRN (13:00)
[2017-12-11] MEDS: PHENOBARBITAL 60 MG TABLET PO SCH ×3 (13:57→20:54)
[2017-12-11 16:00] VITALS: BP 120/70
[2017-12-11] MEDS: DIAZEPAM 10 MG TABLET PO PRN (17:57)
--- NOTE | 2017-12-11 17:57 | NUR ---
PRN GIVEN/NSG NOTES Pt was noted with increase anxiety with agitation. Pt states his anxiety is "up the roof". Pt states of wanting to leave AMA and wants to visit his brother's grave. Pt became emotional and began to cry in regards to the lost of his younger brother. Pt was spoken to by staff and sign writer hand the risks of leaving AMA. Pt agreed to stay. Per stan Henderson to administer Valium 10mg PO PRN. Valium 10mg PO PRN was given as ordered. medication was lance well.
--- NOTE | 2017-12-11 19:15 | NUR ---
END OF SHIFT Pt is 27 yr old male, AA&OX4. pt was noted with increase anxiety with agitation throughout the day. Pt is noted with a flat affect. Pt was insistent on leaving AMA, stating he wanted to visit his brother's grave. Pt was observed very emotional and was crying. Pt was spoken to by staff and caption writer about the risks of leaving AMA. Pt agreed to stay. Pt received Valium 10mg PO PRN at 1757. Medication was effective. Pt also received Motrin 600mg PO PRN and Robaxin 750mg PO PRN at 0936 for back pain, medication was effective. Pt refused to eat dinner. Endorsed to film processing shift supervisor nurse to continue to monitor. Last CIWA score was 10 at 1600. Safety precautions observed. Call light is within reach.
--- NOTE | 2017-12-11 19:30 | NUR ---
START OF SHIFT Pt is a 27 y/o male admitted on 12/07/17 for benzo and meth withdrawal. Pt is on a 5 day Phenobarbital taper that started on 12/08/17, tolerating well. Per day shift nurse, last CIWA 14 and PRN Valium administered. Upon assessment pt laying in bed with eyes closed and upon awakening presents with anxiety, agitation, fatigue, restless legs, sweats, flat/depressed affect, disheveled appearance, unkempt room, emotional lability, irritability and remains withdrawn. Pt reports he has feelings of wanting to leave AMA d/t cravings and emotional instability. Relaxation techniques encouraged and educated patient risks of leaving AMA. Medications due. Safety measures in place. Call light within reach. Will continue to monitor.
[2017-12-11 20:00] VITALS: BP 109/59
--- NOTE | 2017-12-11 22:31 | NUR ---
PRN VALIUM 20 MG ADMINISTRATION/NSG NOTE CIWA 20. Pt presents with severe anxiety, agitation, restlessness, sweats and reports feelings of wanting to leave AMA, is tearful. Pt reports wanting to leave r/t cravings and emotional instability. Safety measures in place. Call light within reach. Will continue to monitor.
--- NOTE | 2017-12-11 23:21 | NUR ---
PRN VALIUM 20 MG REASSESSMENT Pt laying in bed with eyes closed, respirations even and unlabored. CIWA assessment deferred, to be assessed when pt is awake per orders. Safety measures in place. Call light within reach. Will continue to monitor.
--- NOTE | 2017-12-12 | NUR ---
CIWA DEFERRED AND VITALS REFUSED Pt laying in bed with eyes closed, CIWA deferred, to be assessed when pt is awake per orders. Vitals refused. Respirations even and unlabored. Safety measures in place. Call light within reach. Will continue to monitor.
--- NOTE | 2017-12-12 07:22 | NUR ---
END OF SHIFT Pt is a 27 y/o male admitted on 12/07/17 for benzo and meth withdrawal. Pt is on a 5 day Phenobarbital taper that started on 12/08/17, tolerating well. Pt presented with anxiety, agitation, fatigue, restless legs, sweats, flat/depressed affect, disheveled appearance, difficulty falling asleep, unkempt room, emotional lability, irritability and remains withdrawn. Pt reported having feelings of wanting to leave AMA d/t cravings and emotional instability. Relaxation techniques encouraged and educated patient risks of leaving AMA. Scheduled medications and PRN Valium 20 mg administered, effective in S/S of withdrawal as verbalized by pt. Last CIWA 20. Pt slept 8 hours. Intake 100 ml, void x 2, stool x 0. Safety measures in place. Call light within reach. Pts needs have been met. Endorsed to day shift nurse. Addendum: 12/12/17 at 0726 by CAMPOS TAFOYA RN Pt slept 7 hours. Intake 1546 ml, void x 1, stool x 0.
--- NOTE | 2017-12-12 07:29 | NUR ---
START OF SHIFT Pt is a 27 yr old male, admitted on 12/07/17 for Benzo w/d and is on Phenobarbital taper an PRN Valium for s/s of w/d as ordered. Medication lance well. Received report from lieutenant shift supervisor nurse. Pt received Valium 20mg PO PRN for CIWA of 20. Medication was effective and remained asleep throughout the night. Pt slept for 7 hrs. Pt is currently in bed sleeping with respirations even and unlabored. Skin is warm and dry to touch. Pt is on fall and seizure precautions. Bed kept in low positions and locked with side rails up x2. Call light is within reach. Will continue to monitor.
[2017-12-12 08:05] VITALS: BP 104/60
[2017-12-12] MEDS ORDERED: PHENOBARBITAL 60 MG TABLET PO SCH ×2 (09:00)
[2017-12-12] MEDS: GABAPENTIN 300 MG CAPSULE PO SCH (09:04)
[2017-12-12] MEDS: DIAZEPAM 10 MG TABLET PO PRN (09:07)
--- NOTE | 2017-12-12 09:07 | NUR ---
PRN GIVEN/PHENOBARBITAL REFUSED Pt refused to take Phenobarbital 30mg PO as scheduled at 0900 for s/s of w/d. Pt states that the medication causes him to have increase anxiety. Pt is observed with anxiety and agitation. pt is c/o nausea, headache and pins and needles sensation. Fine tremor are seen bilateral hands. CIWA score is 15. Valium 10mg PO PRN was given as ordered. Medication lance well. Encouraged increase fluid intake. Dr. Jules was made aware.
--- NOTE | 2017-12-12 10:07 | NUR ---
PRN RE-ASSESSMENT Valium 10mg PO PRN was effective. CIWA score subsided to 7 at this time. Pt continue to be observed with anxiety but is able to cope with anxiety level. Pt was encouraged to attend group. Pt agreed to go. Will continue to monitor.1
[2017-12-12] MEDS ORDERED: HYDROXYZINE PAMOATE 25 MG CAPSULE PO PRN (11:30)
[2017-12-12 12:17] VITALS: BP 117/74
[2017-12-12] MEDS ORDERED: HYDR-3895 PO (13:03)
[2017-12-12] MEDS ORDERED: IBUP-1955 PO (13:03)
[2017-12-12] MEDS ORDERED: CLON0.1T14 PO (13:03)
[2017-12-12] MEDS ORDERED: DIPH50CA37 PO (13:03)
[2017-12-12] MEDS ORDERED: BACL20TA PO (13:03)
[2017-12-12] MEDS ORDERED: GABA-534 PO ×2 (13:03)
--- NOTE | 2017-12-12 14:11 | NUR ---
VISTARIL PRN GIVEN Pt c/o increase anxiety. Vistaril 25mg PO PRN was given as ordered. Will continue to monitor.
[2017-12-12] MEDS ORDERED: GABAPENTIN 300 MG CAPSULE PO SCH ×2 (15:00→21:00)
[2017-12-12] MEDS ORDERED: DIAZEPAM 5 MG TABLET PO SCH (15:00)
--- NOTE | 2017-12-12 15:11 | NUR ---
PRN RE-ASSESSMENT Vistaril PRN was not effective. Pt continues to be observed with anxiety and agitation. Pt states on leaving AMA because he states, "I want to spend a day with my family before I go into treatment". Pt was spoken to by multiple staff in regards to continuing his treatment. Will continue to monitor.
--- NOTE | 2017-12-12 15:51 | NUR ---
AMA Pt states on leaving AMA because he states, "I want to spend a day with my family before I go into treatment". Pt was spoken to by multiple staff in regards to continuing his treatment and the risks of leaving AMA. Pt verbalize understanding but refuses to continue with the plan of care. No SI/HI noted. Pt left the unit at 1351 in stable condition with all belongings and valuables.
[2017-12-13] MEDS ORDERED: PHENOBARBITAL 60 MG TABLET PO SCH (09:00)
[2017-12-13] MEDS ORDERED: DIAZEPAM 5 MG TABLET PO SCH (09:00)
== END 2017-12-12 15:51 | disposition left against medical advice (07) | DRG 894 ==
LOC: SRC 14:08
PROVIDERS: ADMIT Internal Medicine; ATTEND Internal Medicine
PROC: HZ2ZZZZ Detoxification Services for Substance Abuse Treatment (ICD-10-PCS; principal; 2017-12-07)
PROC: HZ51ZZZ Individual Psychotherapy for Substance Abuse Treatment, Behavioral (ICD-10-PCS; 2017-12-09)
DX: F13.232 Sedative, hypnotic or anxiolytic dependence with withdrawal with perceptual disturbance (principal); B19.20 Unspecified viral hepatitis C without hepatic coma; F15.23 Other stimulant dependence with withdrawal; F11.11 Opioid abuse, in remission; F17.210 Nicotine dependence, cigarettes, uncomplicated; Z59.0 Homelessness; Z80.9 Family history of malignant neoplasm, unspecified; Z81.1 Family history of alcohol abuse and dependence; Z87.442 Personal history of urinary calculi; Z91.89 Other specified personal risk factors, not elsewhere classified; Z81.8 Family history of other mental and behavioral disorders; Z59.1 Inadequate housing; F32.9 Major depressive disorder, single episode, unspecified
CPT/HCPCS: 36415; 80307; 80324; 80346; 80349; 83735; 84443; 85025; 86592; 86705; 86803; 87340; 87806; A4663; G0480; J8499